=== PATIENT | male | born 1955 | race Caucasian/White ===

== ENCOUNTER → 2021-06-20 11:25 | Outpatient (CLI) | payer OTHER ==
[~2021-06-20 11:25] MED LIST: PRILOSEC OTC20 MG PO
== END | disposition home or self-care (01) ==
LOC: LAB 11:25
PROVIDERS: ATTEND Urology
DX: R97.20 Elevated prostate specific antigen [PSA] (principal)

== ENCOUNTER 2021-09-06 07:21 | Outpatient (CLI) | payer OTHER | END 2021-09-06 07:29 | disposition home or self-care (01) | LOC: SONOGRAMA 07:21 | PROVIDERS: ATTEND Urology | DX: R97.20 Elevated prostate specific antigen [PSA] (principal) ==